=== PATIENT | female | born 1950 | race Caucasian/White ===

== ENCOUNTER 2023-06-04 19:14 | Emergency (ER) | payer MEDICARE, OTHER ==
[~2023-06-04] VITALS: Ht 167.6 cm; Wt 67.9 kg
[~2023-06-04 19:14] MED LIST: ACET325T58 PO; ALBU2.5V7 NEB; AMOX-419 PO; FURO40TA4 PO; IPRA3AMP9 NEB; OLME40TA18 PO; PRED20TA PO
[2023-06-04] MEDS ORDERED: HYDROcodone/acetaminophen 5mg/325mg tablet PO ONE (19:40)
[2023-06-04] MEDS ORDERED: ondansetron 4mg rapidly disintigrating tab PO ONE (20:10)
[2023-06-04] MEDS ORDERED: morphine 4 MG/ML inj SYRINge IV ONE (20:15)
[2023-06-04] MEDS ORDERED: HYDROmorphone inj. 0.5 MG/0.5 ML DISP.SYRIN IM ONE ×3 (20:35→21:15)
[2023-06-04] MEDS ORDERED: HYDR-3965 PO (21:42)
[2023-06-04 22:10] VITALS: BP 138/64; PULSE 78; RESP 16; TEMP 97.9; O2SAT 94
== END 2023-06-04 22:13 | disposition home or self-care (01) ==
LOC: ER 19:15
DX: S52.532A Colles' fracture of left radius, initial encounter for closed fracture (principal); W18.39XA Other fall on same level, initial encounter; Z91.81 History of falling; Y93.89 Activity, other specified; Y92.89 Other specified places as the place of occurrence of the external cause; Y99.8 Other external cause status
CPT/HCPCS: 25605; 73100; 73110; 96372; 99284; J1170; A6446; A6449

== ENCOUNTER 2024-03-21 17:00 | Inpatient (IN) | payer MEDICARE, OTHER ==
[~2024-03-21] VITALS: Ht 165.1 cm; Wt 72.2 kg
[~2024-03-21 17:00] MED LIST changes: -ACET325T58 PO; -ALBU2.5V7 NEB; +AMLO2.5T2 PO; -AMOX-419 PO; +FURO-150 PO; -FURO40TA4 PO; -IPRA3AMP9 NEB; +LOSA100T58 PO; -OLME40TA18 PO; -PRED20TA PO
[2024-03-21] MEDS: aspirin 81mg tab.chew PO ONE (17:29)
[2024-03-21] MEDS: ipratropium/albuterol 3ml nebule NEB STA (17:44)
[2024-03-21 17:45] VITALS: PULSE 73; RESP 17; O2SAT 94
[2024-03-21 17:45] LABS: EOSINOPHILS # (AUTO) 0.1 X10'3 (0-0.9); EOSINOPHILS % (AUTO) 0.8 % (0-6); HEMOGLOBIN 16.4 g/dl (12.0-16.0); LYMPHOCYTES # (AUTO) 1.4 X10'3 (1.1-4.8); MONOCYTES # (AUTO) 0.9 X10'3 (0-0.9)
[2024-03-21 17:47] LABS: BASOPHILS % (AUTO) 0.5 % (0-1); HEMATOCRIT 49.3 % (35.0-45.0); LYMPHOCYTES % (AUTO) 18.5 % (21-51); MEAN CORPUSCULAR HEMOGLOBIN 32.7 PG (27.0-31.0); MEAN CORPUSCULAR HGB CONC 33.3 g/dL (33.0-36.5); MEAN CORPUSCULAR VOLUME 98.3 FL (78-98); MONOCYTES % (AUTO) 12.2 % (2-12); NEUTROPHILS # (AUTO) 5.3 X10'3 (1.8-7.7); PLATELET COUNT 275 X10'3 (140-440); RED BLOOD COUNT 5.01 X10'6 (4.20-5.60); RED CELL DISTRIBUTION WIDTH 16.6 % (11.5-14.5); WHITE BLOOD COUNT 7.7 X10'3 (4.5-11.0)
[2024-03-21 17:50] VITALS: PULSE 75; RESP 16; O2SAT 94
[2024-03-21 17:56] LABS: ALBUMIN 3.4 G/DL (3.4-5.0); ANION GAP 6 (8-16); BLOOD UREA NITROGEN 23 MG/DL (7-18); BUN/CREATININE RATIO 24.5 (10.0-20.0); CALCIUM 8.5 MG/DL (8.5-10.1); CHLORIDE 102 MMOL/L (99-107); CREATININE 0.94 MG/DL (0.40-0.90); GLUCOSE 118 MG/DL (70-104); MAGNESIUM 2.1 MG/DL (1.5-2.4); POTASSIUM 4.4 MMOL/L (3.5-5.1); PRO BRAIN NATRIURETIC PEPTIDE 357 PG/ML (0-450); SODIUM 142 MMOL/L (135-145); eCRCL 47 ML/MIN; eGFR 58 ML/MIN
[2024-03-21] MEDS: CefTRIAXone 2gm/D5W 50ml BAG 50 ML IV ONE (18:03)
[2024-03-21] MEDS: azithromycin/NS 500mg/250ml 250 ML IV ONE (19:01)
[2024-03-21] MEDS ORDERED: furosemide 10 MG/1 ML 10ml inj IV ONE (19:40)
[2024-03-21] MEDS: furosemide 40mg/4ml inj IV ONE (19:55)
[2024-03-21] MEDS: methylPREDNISolone sod succ 125mg/2ml vial IV ONE (20:10)
[2024-03-21] MEDS ORDERED: acetaZOLAMIDE 250mg tablet PO SCH (20:15)
[2024-03-21] MEDS ORDERED: magnesium Cl slow-release 64mg tablet PO PRN (20:20)
[2024-03-21] MEDS ORDERED: mag hydrox/Alum hydrox/simeth 30ml oral suspension PO PRN (20:20)
[2024-03-21] MEDS ORDERED: magnesium hydroxide 30ml (MOM) UD suspension PO PRN (20:20)
[2024-03-21] MEDS ORDERED: ondansetron/PF 4mg/2ml inj IV PRN (20:20)
[2024-03-21] MEDS ORDERED: potassium Cl 40MEQ/1/2NS 520ml 520 ML IV PRN (20:20)
[2024-03-21] MEDS ORDERED: magnesium sulf-water 2g/50mL 50 ML IV PRN (20:20)
[2024-03-21] MEDS ORDERED: magnesium sulf-water 4G/100mL 100 ML IV PRN (20:20)
[2024-03-21] MEDS ORDERED: potassium Cl 20 mEq SR tablet PO PRN ×2 (20:20)
[2024-03-21 20:28] LABS: D-DIMER 0.43 MG/L FEU (0-0.50)
[2024-03-21 20:41] LABS: ABG BASE EXCESS 4.7 mmol/L (-2.0-3.0); ABG HCO3 32.6 mmol/L (21.0-28.0); ABG OXYGEN SATURATION 91.1 % (94.0-98.0); ABG PCO2 (T) 59.7 mmHg (32.0-45.0); ABG PH (T) 7.353 (7.350-7.450); ABG PO2 (T) 61.3 mmHg (83.0-108.0); ALLEN'S TEST Modified; FCOHb 2.8 % (0.5-1.5); FHHb 8.6 % (0.0-5.0); FLOW 5 L/min; FMetHb 0.3 % (0.0-1.5); FO2Hb 88.3 % (94.0-98.0); MODE NASAL CANNULA; PATIENT TEMPERATURE 36.6; TOTAL HEMOGLOBIN 16.7 G/dl (12.0-16.0)
[2024-03-21 20:48] LABS: PHOSPHORUS 5.3 MG/DL (2.3-4.5)
[2024-03-21 20:49] VITALS: PULSE 86; RESP 20; O2SAT 92
[2024-03-21 23:59] VITALS: BP 132/82; PULSE 75; RESP 18; TEMP 97.2
[2024-03-22] VITALS (19 sets, daily range): BP systolic 123–129; BP diastolic 62–74; PULSE 72–80; RESP 14–24; TEMP 97.2–98.3; O2SAT 91–95
[2024-03-22 02:01] LABS: BILIRUBIN,URINE NEGATIVE (Neg); CLARITY,URINE SLIGHTLY CLOUDY (Clear); COLOR,URINE STRAW (Yellow); GLUCOSE, URINE NEGATIVE (Neg); KETONES,URINE NEGATIVE (Neg); LEUKOCYTE ESTERASE ,URINE SMALL (Neg); NITRITES, URINE NEGATIVE (Neg); OCCULT BLOOD,URINE NEGATIVE (Neg); PH,URINE 6.5 (4.8-8.0); PROTEIN,URINE NEGATIVE (Neg); UROBILINOGEN,URINE 0.2 E.U/dL (0.2-1.0)
[2024-03-22 02:16] LABS: UA COLLECTION TYPE VOIDED
[2024-03-22 02:22] LABS: SQUAMOUS EPITHELIAL CELL,UR FEW /LPF (FEW)
[2024-03-22 02:23] LABS: BACTERIA,URINE FEW /HPF (Neg); RBC,URINE 0-2 /HPF (0-2); WBC,URINE 0-4 /HPF (0-4)
[2024-03-22] MEDS: acetaminophen 325mg tablet PO PRN (03:30)
[2024-03-22 07:03] LABS: BASOPHILS % (AUTO) 0.2 % (0-1); EOSINOPHILS % (AUTO) 0 % (0-6); HEMATOCRIT 50.4 % (35.0-45.0); HEMOGLOBIN 16.8 g/dl (12.0-16.0); LYMPHOCYTES # (AUTO) 0.4 X10'3 (1.1-4.8); LYMPHOCYTES % (AUTO) 6.3 % (21-51); MEAN CORPUSCULAR HEMOGLOBIN 32.5 PG (27.0-31.0); MEAN CORPUSCULAR HGB CONC 33.3 g/dL (33.0-36.5); MEAN CORPUSCULAR VOLUME 97.7 FL (78-98); MEAN PLATELET VOLUME 8.2 FL (7.4-10.4); MONOCYTES # (AUTO) 0.1 X10'3 (0-0.9); MONOCYTES % (AUTO) 0.7 % (2-12); NEUTROPHILS # (AUTO) 6.3 X10'3 (1.8-7.7); NEUTROPHILS % (AUTO) 92.8 % (42-75); PLATELET COUNT 267 X10'3 (140-440); RED BLOOD COUNT 5.16 X10'6 (4.20-5.60); WHITE BLOOD COUNT 6.8 X10'3 (4.5-11.0)
[2024-03-22 07:15] LABS: ALBUMIN 3.1 G/DL (3.4-5.0); ANION GAP 4 (8-16); BLOOD UREA NITROGEN 16 MG/DL (7-18); BUN/CREATININE RATIO 33.3 (10.0-20.0); CALCIUM 8.3 MG/DL (8.5-10.1); CHLORIDE 102 MMOL/L (99-107); CREATININE 0.48 MG/DL (0.40-0.90); GLUCOSE 166 MG/DL (70-104); POTASSIUM 4.2 MMOL/L (3.5-5.1); SODIUM 141 MMOL/L (135-145); eCRCL 91 ML/MIN; eGFR > 90 ML/MIN
[2024-03-22] MEDS: K and/or MAG REPLACEMENT MC SCH (08:00)
[2024-03-22] MEDS ORDERED: furosemide 40mg tablet PO SCH (08:00)
[2024-03-22] MEDS: methylPREDNISolone sod succ/PF 40mg inj. IV SCH (08:13)
[2024-03-22] MEDS: losartan 50mg tablet PO SCH (08:34)
[2024-03-22] MEDS: amLODIPine 2.5mg tablet PO SCH (08:34)
[2024-03-22] MEDS: enoxaparin 40mg/0.4ml syringe SUBCUT SCH (08:35)
[2024-03-22] MEDS ORDERED: DEXTROSE 15 GM of carb/4 tabs (each vial/BOTTLE has 4 tablets) PO PRN ×2 (08:40)
[2024-03-22] MEDS ORDERED: dextrose 50%-water 50ml dispensing syringe IV PRN ×2 (08:40)
[2024-03-22] MEDS ORDERED: glucagon, human recombinant 1mg kit SUBCUT PRN (08:40)
[2024-03-22 09:21] LABS: HEMOGLOBIN A1C 5.8 % (4.5-6.2)
[2024-03-22] MEDS: furosemide 40mg/4ml inj IV SCH (10:26)
[2024-03-22] MEDS: ipratropium/albuterol 3ml nebule NEB PRN (11:56)
[2024-03-22] MEDS ORDERED: INSULIN LISPRO 100 UNIT/ML INSULN.PEN MULTI-DOSE SQ SCH (12:00)
[2024-03-22] MEDS: CefTRIAXone/D5W-Rocephin 1gm 50 ML IV SCH (17:36)
[2024-03-22] MEDS: azithromycin/NS 500mg/250ml 250 ML IV SCH (17:37)
[2024-03-23] VITALS (18 sets, daily range): BP systolic 119–145; BP diastolic 49–94; PULSE 66–83; RESP 12–25; TEMP 97–98.8; O2SAT 92–95
[2024-03-23 06:34] LABS: BASOPHILS # (AUTO) 0.1 X10'3 (0-0.2); BASOPHILS % (AUTO) 0.4 % (0-1); EOSINOPHILS % (AUTO) 0 % (0-6); HEMATOCRIT 47.2 % (35.0-45.0); HEMOGLOBIN 15.4 g/dl (12.0-16.0); LYMPHOCYTES # (AUTO) 0.8 X10'3 (1.1-4.8); LYMPHOCYTES % (AUTO) 6.9 % (21-51); MEAN CORPUSCULAR HEMOGLOBIN 31.7 PG (27.0-31.0); MEAN CORPUSCULAR HGB CONC 32.8 g/dL (33.0-36.5); MEAN CORPUSCULAR VOLUME 96.8 FL (78-98); MEAN PLATELET VOLUME 7.5 FL (7.4-10.4); MONOCYTES # (AUTO) 0.7 X10'3 (0-0.9); MONOCYTES % (AUTO) 5.8 % (2-12); NEUTROPHILS % (AUTO) 86.9 % (42-75); PLATELET COUNT 263 X10'3 (140-440); RED BLOOD COUNT 4.87 X10'6 (4.20-5.60); RED CELL DISTRIBUTION WIDTH 16.1 % (11.5-14.5); WHITE BLOOD COUNT 11.5 X10'3 (4.5-11.0)
[2024-03-23 06:50] LABS: ALBUMIN 2.8 G/DL (3.4-5.0); ANION GAP 3 (8-16); BLOOD UREA NITROGEN 22 MG/DL (7-18); BUN/CREATININE RATIO 41.5 (10.0-20.0); CALCIUM 8.7 MG/DL (8.5-10.1); CHLORIDE 102 MMOL/L (99-107); CREATININE 0.53 MG/DL (0.40-0.90); GLUCOSE 150 MG/DL (70-104); POTASSIUM 4.5 MMOL/L (3.5-5.1); SODIUM 139 MMOL/L (135-145); TOTAL CARBON DIOXIDE 34.4 MMOL/L (24-32); eCRCL 83 ML/MIN; eGFR > 90 ML/MIN
[2024-03-23] MEDS ORDERED: polyethylene glycol 3350 17gm powd pack PO PRN (11:05)
[2024-03-24] VITALS (12 sets, daily range): BP systolic 130–157; BP diastolic 69–83; PULSE 67–75; RESP 14–19; TEMP 97.3–99; O2SAT 83–94
[2024-03-24 07:05] LABS: BASOPHILS % (AUTO) 0.2 % (0-1); EOSINOPHILS % (AUTO) 0 % (0-6); HEMATOCRIT 48.7 % (35.0-45.0); HEMOGLOBIN 15.7 g/dl (12.0-16.0); LYMPHOCYTES # (AUTO) 0.6 X10'3 (1.1-4.8); LYMPHOCYTES % (AUTO) 6.2 % (21-51); MEAN CORPUSCULAR HEMOGLOBIN 31.3 PG (27.0-31.0); MEAN CORPUSCULAR HGB CONC 32.2 g/dL (33.0-36.5); MEAN CORPUSCULAR VOLUME 97.4 FL (78-98); MEAN PLATELET VOLUME 7.7 FL (7.4-10.4); MONOCYTES # (AUTO) 0.5 X10'3 (0-0.9); MONOCYTES % (AUTO) 4.9 % (2-12); NEUTROPHILS # (AUTO) 9.2 X10'3 (1.8-7.7); NEUTROPHILS % (AUTO) 88.7 % (42-75); PLATELET COUNT 283 X10'3 (140-440); RED CELL DISTRIBUTION WIDTH 16.7 % (11.5-14.5); WHITE BLOOD COUNT 10.4 X10'3 (4.5-11.0)
[2024-03-24 07:33] LABS: ALBUMIN 2.7 G/DL (3.4-5.0); ANION GAP 2 (8-16); BLOOD UREA NITROGEN 20 MG/DL (7-18); CALCIUM 8.6 MG/DL (8.5-10.1); CHLORIDE 102 MMOL/L (99-107); CREATININE 0.54 MG/DL (0.40-0.90); GLUCOSE 124 MG/DL (70-104); SODIUM 138 MMOL/L (135-145); TOTAL CARBON DIOXIDE 34.5 MMOL/L (24-32); eCRCL 81 ML/MIN; eGFR > 90 ML/MIN
[2024-03-25 02:00] VITALS: BP 153/90; PULSE 65; RESP 16; TEMP 97.6; O2SAT 92
[2024-03-25 06:30] VITALS: O2SAT 90
[2024-03-25 07:00] VITALS: BP 151/82; PULSE 60; RESP 17; TEMP 98.1; O2SAT 98
[2024-03-25 07:51] LABS: EOSINOPHILS % (AUTO) 0 % (0-6); LYMPHOCYTES # (AUTO) 0.8 X10'3 (1.1-4.8); MONOCYTES # (AUTO) 0.4 X10'3 (0-0.9)
[2024-03-25 07:52] LABS: BASOPHILS % (AUTO) 0.3 % (0-1); HEMATOCRIT 54.6 % (35.0-45.0); HEMOGLOBIN 17.6 g/dl (12.0-16.0); LYMPHOCYTES % (AUTO) 8.8 % (21-51); MEAN CORPUSCULAR HEMOGLOBIN 31.6 PG (27.0-31.0); MEAN CORPUSCULAR HGB CONC 32.2 g/dL (33.0-36.5); MEAN CORPUSCULAR VOLUME 97.9 FL (78-98); MEAN PLATELET VOLUME 7.8 FL (7.4-10.4); NEUTROPHILS # (AUTO) 7.5 X10'3 (1.8-7.7); NEUTROPHILS % (AUTO) 85.9 % (42-75); PLATELET COUNT 306 X10'3 (140-440); RED BLOOD COUNT 5.58 X10'6 (4.20-5.60); RED CELL DISTRIBUTION WIDTH 16.5 % (11.5-14.5); WHITE BLOOD COUNT 8.8 X10'3 (4.5-11.0)
[2024-03-25] MEDS: azithromycin 250mg tablet PO SCH (07:56)
[2024-03-25 07:57] VITALS: BP_SYST 151
[2024-03-25] MEDS: sod chloride 0.9% 10ml flush syringe IV SCH (07:57)
[2024-03-25 08:11] LABS: ALBUMIN 3.2 G/DL (3.4-5.0); ANION GAP 3 (8-16); BLOOD UREA NITROGEN 18 MG/DL (7-18); BUN/CREATININE RATIO 34.6 (10.0-20.0); CALCIUM 9.2 MG/DL (8.5-10.1); CHLORIDE 100 MMOL/L (99-107); CREATININE 0.52 MG/DL (0.40-0.90); GLUCOSE 112 MG/DL (70-104); POTASSIUM 5.2 MMOL/L (3.5-5.1); SODIUM 138 MMOL/L (135-145); TOTAL CARBON DIOXIDE 35.3 MMOL/L (24-32); eCRCL 84 ML/MIN; eGFR > 90 ML/MIN
[2024-03-25 09:25] VITALS: O2SAT 93
[2024-03-25] MEDS: methylPREDNISolone sod succ 125mg/2ml vial IM ONE (11:21)
[2024-03-25] MEDS ORDERED: ALBU90AE INH (15:03)
[2024-03-25] MEDS ORDERED: FLUT1BLS16 INH (15:03)
[2024-03-25] MEDS ORDERED: CEFD300C3 PO (15:03)
[2024-03-25] MEDS ORDERED: PRED10TA23 PO (15:15)
[2024-03-25 15:28] VITALS: PULSE 84; RESP 15; O2SAT 91
== END 2024-03-25 15:40 | disposition home health service (06) | DRG 291 ==
LOC: ER 17:00 → UNDOADMIN 20:17 → ED HOLD 20:17 → PCU 3S 22:00 → ED HOLD 22:00
PROVIDERS: ADMIT Internal Medicine Critical Care Medicine; ATTEND Registered Nurse Psychiatric/Mental Health
PROC: 5A0935A Assistance with Respiratory Ventilation, Less than 24 Consecutive Hours, High Flow/Velocity Cannula (ICD-10-PCS; principal; 2024-03-22)
PROC: 5A0935A Assistance with Respiratory Ventilation, Less than 24 Consecutive Hours, High Flow/Velocity Cannula (ICD-10-PCS; 2024-03-23)
PROC: 5A0935A Assistance with Respiratory Ventilation, Less than 24 Consecutive Hours, High Flow/Velocity Cannula (ICD-10-PCS; 2024-03-24)
DX: I11.0 Hypertensive heart disease with heart failure (principal); I50.33 Acute on chronic diastolic (congestive) heart failure; J96.22 Acute and chronic respiratory failure with hypercapnia; N17.0 Acute kidney failure with tubular necrosis; J18.9 Pneumonia, unspecified organism; J96.21 Acute and chronic respiratory failure with hypoxia; J44.1 Chronic obstructive pulmonary disease with (acute) exacerbation; J44.0 Chronic obstructive pulmonary disease with (acute) lower respiratory infection; Z20.822 Contact with and (suspected) exposure to COVID-19; J43.9 Emphysema, unspecified; J40 Bronchitis, not specified as acute or chronic
CPT/HCPCS: 36415; 36600; 71045; 71250; 80048; 81001; 82803; 83036; 83605; 83735; 83880; 84100; 84145; 84484; 85018; 85025; 85379; 87040; 87081; 87502; 87503; 87811; 93005; 93306; 94640; 94760; 96365; 96375; 97110; 97116; 97161; 97530; 99291; A4615; A4620; A6258; G0378; J0456; J0696; J1650; J1815; J1940; J2919; J7040

== ENCOUNTER 2024-09-16 11:16 | Inpatient (IN) | payer MEDICARE, OTHER ==
[~2024-09-16] VITALS: Ht 165.1 cm; Wt 70.5 kg
[~2024-09-16 11:16] MED LIST changes: +ALBU90AE INH; +FLUT1BLS16 INH; -FURO-150 PO
[2024-09-16 12:06] LABS: BASOPHILS # (AUTO) 0.1 X10'3 (0-0.2); EOSINOPHILS # (AUTO) 0.2 X10'3 (0-0.9); LYMPHOCYTES # (AUTO) 1.6 X10'3 (1.1-4.8); MEAN CORPUSCULAR HEMOGLOBIN 32.7 PG (27.0-31.0); MEAN PLATELET VOLUME 7.5 FL (7.4-10.4)
[2024-09-16 12:08] LABS: EOSINOPHILS % (AUTO) 2.3 % (0-6); HEMATOCRIT 44.9 % (35.0-45.0); HEMOGLOBIN 15.1 g/dl (12.0-16.0); LYMPHOCYTES % (AUTO) 18.8 % (21-51); MEAN CORPUSCULAR HGB CONC 33.5 g/dL (33.0-36.5); MEAN CORPUSCULAR VOLUME 97.6 FL (78-98); MONOCYTES % (AUTO) 11.6 % (2-12); NEUTROPHILS # (AUTO) 5.5 X10'3 (1.8-7.7); NEUTROPHILS % (AUTO) 66.3 % (42-75); PLATELET COUNT 397 X10'3 (140-440); RED CELL DISTRIBUTION WIDTH 13.4 % (11.5-14.5); WHITE BLOOD COUNT 8.3 X10'3 (4.5-11.0)
[2024-09-16 12:33] LABS: ALANINE AMINOTRANSFERASE 42 U/L (12-78); ALBUMIN 3.4 G/DL (3.4-5.0); ALBUMIN/GLOBULIN RATIO 0.9 (1.1-1.5); ALKALINE PHOSPHATASE 48 IU/L (46-116); ANION GAP 4 (8-16); ASPARTATE AMINO TRANSFERASE 14 U/L (10-37); BILIRUBIN,TOTAL 0.4 MG/DL (0.1-1.0); BLOOD UREA NITROGEN 10 MG/DL (7-18); BUN/CREATININE RATIO 22.7 (10.0-20.0); CHLORIDE 101 MMOL/L (99-107); CREATININE 0.44 MG/DL (0.40-0.90); GLUCOSE 103 MG/DL (70-104); POTASSIUM 3.9 MMOL/L (3.5-5.1); SODIUM 140 MMOL/L (135-145); TOTAL CARBON DIOXIDE 34.6 MMOL/L (24-32); TOTAL PROTEIN 7.3 G/DL (6.4-8.2); eCRCL 99 ML/MIN; eGFR > 90 ML/MIN
[2024-09-16 12:41] LABS: PRO BRAIN NATRIURETIC PEPTIDE 1348 PG/ML (0-450)
[2024-09-16] MEDS: furosemide 40mg/4ml inj IV ONE (13:02)
[2024-09-16 13:25] LABS: BILIRUBIN,URINE NEGATIVE (Neg); CLARITY,URINE CLEAR (Clear); COLOR,URINE STRAW (Yellow); GLUCOSE, URINE NEGATIVE (Neg); KETONES,URINE NEGATIVE (Neg); LEUKOCYTE ESTERASE ,URINE TRACE (Neg); NITRITES, URINE NEGATIVE (Neg); OCCULT BLOOD,URINE NEGATIVE (Neg); PROTEIN,URINE NEGATIVE (Neg); UROBILINOGEN,URINE 0.2 E.U/dL (0.2-1.0)
[2024-09-16 13:34] LABS: UA COLLECTION TYPE URINAL
[2024-09-16 13:46] LABS: WBC,URINE 0-4 /HPF (0-4)
[2024-09-16 13:47] LABS: BACTERIA,URINE NONE SEEN /HPF (Neg); RBC,URINE NONE SEEN /HPF (0-2); SQUAMOUS EPITHELIAL CELL,UR FEW /LPF (FEW)
[2024-09-16] MEDS ORDERED: potassium Cl 40MEQ/1/2NS 520ml 520 ML IV PRN (14:00)
[2024-09-16] MEDS ORDERED: morphine 2 MG/ML inj. syringe IV PRN (14:00)
[2024-09-16] MEDS ORDERED: magnesium sulf-water 2g/50mL 50 ML IV PRN (14:00)
[2024-09-16] MEDS ORDERED: acetaminophen 325mg tablet PO PRN (14:00)
[2024-09-16] MEDS ORDERED: HYDROcodone/acetaminophen 5mg/325mg tablet PO PRN (14:00)
[2024-09-16] MEDS ORDERED: magnesium Cl slow-release 64mg tablet PO PRN (14:00)
[2024-09-16] MEDS ORDERED: potassium Cl 20 mEq SR tablet PO PRN (14:00)
[2024-09-16] MEDS ORDERED: magnesium sulf-water 4G/100mL 100 ML IV PRN (14:00)
[2024-09-16] MEDS ORDERED: ondansetron/PF 4mg/2ml inj IV PRN (14:00)
[2024-09-16] MEDS ORDERED: albuterol 2.5 MG/3 ML nebule NEB PRN (14:05)
[2024-09-16] MEDS: acetaminophen 325mg tablet PO SCH (16:00)
[2024-09-16 16:15] VITALS: BP 152/75; PULSE 69; RESP 14; TEMP 98.1; O2SAT 92
[2024-09-16] MEDS ORDERED: FURO40TA4 (16:46)
[2024-09-16 17:00] VITALS: RESP 14; O2SAT 92
[2024-09-16 18:00] VITALS: BP 141/63; PULSE 72; RESP 18; TEMP 96.3; O2SAT 90
[2024-09-16] MEDS: CefTRIAXone 2gm/D5W 50ml BAG 50 ML IV ONE (19:44)
[2024-09-16] MEDS: heparin, porcine 5000 units/ml vial SQ SCH (19:46)
[2024-09-16] MEDS ORDERED: furosemide 40mg/4ml inj IV SCH (20:00)
[2024-09-16 22:00] VITALS: BP 110/68; PULSE 72; RESP 16; TEMP 97.4; O2SAT 89
[2024-09-17] VITALS (9 sets, daily range): BP systolic 121–139; BP diastolic 59–81; PULSE 62–97; RESP 17–20; TEMP 97.1–98.1; O2SAT 88–97
[2024-09-17 06:40] LABS: BASOPHILS # (AUTO) 0.1 X10'3 (0-0.2); BASOPHILS % (AUTO) 0.9 % (0-1); EOSINOPHILS # (AUTO) 0.2 X10'3 (0-0.9); EOSINOPHILS % (AUTO) 1.9 % (0-6); HEMATOCRIT 41.8 % (35.0-45.0); HEMOGLOBIN 14.2 g/dl (12.0-16.0); LYMPHOCYTES # (AUTO) 1.7 X10'3 (1.1-4.8); LYMPHOCYTES % (AUTO) 19.6 % (21-51); MEAN CORPUSCULAR HEMOGLOBIN 33.1 PG (27.0-31.0); MEAN CORPUSCULAR HGB CONC 34.1 g/dL (33.0-36.5); MEAN PLATELET VOLUME 7.5 FL (7.4-10.4); MONOCYTES # (AUTO) 0.9 X10'3 (0-0.9); MONOCYTES % (AUTO) 10.2 % (2-12); NEUTROPHILS # (AUTO) 5.9 X10'3 (1.8-7.7); NEUTROPHILS % (AUTO) 67.4 % (42-75); PLATELET COUNT 364 X10'3 (140-440); RED BLOOD COUNT 4.31 X10'6 (4.20-5.60); RED CELL DISTRIBUTION WIDTH 13.4 % (11.5-14.5); WHITE BLOOD COUNT 8.8 X10'3 (4.5-11.0)
[2024-09-17 07:00] LABS: ALBUMIN 2.8 G/DL (3.4-5.0); ANION GAP 6 (8-16); BLOOD UREA NITROGEN 11 MG/DL (7-18); BUN/CREATININE RATIO 26.8 (10.0-20.0); CALCIUM 8.5 MG/DL (8.5-10.1); CHLORIDE 99 MMOL/L (99-107); CREATININE 0.41 MG/DL (0.40-0.90); GLUCOSE 95 MG/DL (70-104); POTASSIUM 3.6 MMOL/L (3.5-5.1); SODIUM 137 MMOL/L (135-145); TOTAL CARBON DIOXIDE 32.5 MMOL/L (24-32); eCRCL 107 ML/MIN; eGFR > 90 ML/MIN
[2024-09-17] MEDS: furosemide 40mg/4ml inj IV SCH (08:51)
[2024-09-17] MEDS: albuterol 2.5 MG/3 ML nebule NEB SCH (09:30)
[2024-09-18] VITALS (10 sets, daily range): BP systolic 112–134; BP diastolic 52–72; PULSE 61–84; RESP 15–22; TEMP 97–98.3; O2SAT 90–96
[2024-09-18 05:24] LABS: BASOPHILS # (AUTO) 0.1 X10'3 (0-0.2); BASOPHILS % (AUTO) 0.8 % (0-1); EOSINOPHILS # (AUTO) 0.1 X10'3 (0-0.9); HEMATOCRIT 39.7 % (35.0-45.0); HEMOGLOBIN 13.7 g/dl (12.0-16.0); LYMPHOCYTES # (AUTO) 1.9 X10'3 (1.1-4.8); LYMPHOCYTES % (AUTO) 18.5 % (21-51); MEAN CORPUSCULAR HEMOGLOBIN 33.5 PG (27.0-31.0); MEAN CORPUSCULAR HGB CONC 34.7 g/dL (33.0-36.5); MEAN CORPUSCULAR VOLUME 96.5 FL (78-98); MEAN PLATELET VOLUME 7.1 FL (7.4-10.4); MONOCYTES # (AUTO) 1.1 X10'3 (0-0.9); MONOCYTES % (AUTO) 11.2 % (2-12); NEUTROPHILS # (AUTO) 6.9 X10'3 (1.8-7.7); NEUTROPHILS % (AUTO) 68.5 % (42-75); PLATELET COUNT 371 X10'3 (140-440); RED BLOOD COUNT 4.11 X10'6 (4.20-5.60); RED CELL DISTRIBUTION WIDTH 13.5 % (11.5-14.5); WHITE BLOOD COUNT 10.1 X10'3 (4.5-11.0)
[2024-09-18 05:47] LABS: ALBUMIN 2.7 G/DL (3.4-5.0); ANION GAP 6 (8-16); BLOOD UREA NITROGEN 13 MG/DL (7-18); BUN/CREATININE RATIO 22.8 (10.0-20.0); CALCIUM 8.6 MG/DL (8.5-10.1); CHLORIDE 96 MMOL/L (99-107); CREATININE 0.57 MG/DL (0.40-0.90); GLUCOSE 118 MG/DL (70-104); POTASSIUM 3.3 MMOL/L (3.5-5.1); SODIUM 137 MMOL/L (135-145); TOTAL CARBON DIOXIDE 35.2 MMOL/L (24-32); eCRCL 77 ML/MIN; eGFR > 90 ML/MIN
[2024-09-18] MEDS: CefTRIAXone 2gm/D5W 50ml BAG 50 ML IV SCH (08:11)
[2024-09-18] MEDS: potassium Cl 20 mEq SR tablet PO PRN (08:14)
[2024-09-18] MEDS ORDERED: LEVO-65 PO (13:40)
== END 2024-09-18 15:58 | disposition home or self-care (01) | DRG 291 ==
LOC: ER 11:16 → ED HOLD 14:04 → PCU 3S 16:03
PROVIDERS: ADMIT Internal Medicine; ATTEND Internal Medicine
DX: I11.0 Hypertensive heart disease with heart failure (principal); I50.33 Acute on chronic diastolic (congestive) heart failure; J96.01 Acute respiratory failure with hypoxia; J44.1 Chronic obstructive pulmonary disease with (acute) exacerbation; Z20.822 Contact with and (suspected) exposure to COVID-19; I27.20 Pulmonary hypertension, unspecified; J43.9 Emphysema, unspecified; Z79.899 Other long term (current) drug therapy; Z87.891 Personal history of nicotine dependence
CPT/HCPCS: 36415; 71045; 80048; 80053; 81001; 83880; 84145; 84484; 85025; 85651; 87081; 87502; 87503; 87811; 93005; 93306; 94640; 94668; 94760; 97116; 97161; 97530; 99285; G0378; J0696; J1644; J1940; J7030